=== PATIENT | male | born 1995 | race Caucasian/White ===

== ENCOUNTER 2024-11-25 18:00 | Emergency (ER) | payer SELFPAY ==
[~2024-11-25] VITALS: Ht 167.6 cm; Wt 79.0 kg
[2024-11-25 18:14] VITALS: BP 125/70; TEMP 98.4
[2024-11-25] MEDS ORDERED: FLUT15.89 BNOSTRILS (18:42)
[2024-11-25] MEDS ORDERED: AMOX-430 PO (18:42)
[2024-11-25 18:47] VITALS: O2SAT 98
== END 2024-11-25 18:48 | disposition home or self-care (01) ==
LOC: ER 18:00
DX: J01.90 Acute sinusitis, unspecified (principal); R09.81 Nasal congestion; F17.200 Nicotine dependence, unspecified, uncomplicated; Z60.2 Problems related to living alone